=== PATIENT | female | born 1980 | race Caucasian/White ===

== ENCOUNTER 2018-06-10 18:28 | Emergency (ER) | payer BC ==
[~2018-06-10] VITALS: Ht 160 cm; Wt 75.3 kg
[~2018-06-10 18:28] MED LIST: PSYL48.56 OR
[2018-06-10 18:30] VITALS: BP 116/58
[2018-06-10] MEDS ORDERED: DEXAMETHASONE SOD PHOS 10MG/1ML VIAL INJ IM ONE (18:45)
[2018-06-10] MEDS ORDERED: cefTRIAXone SOD 1,000 MG VL IM ONE (18:45)
== END 2018-06-10 19:10 | disposition home or self-care (01) ==
LOC: ER 18:28
DX: J06.9 Acute upper respiratory infection, unspecified (principal)
CPT/HCPCS: 96372; 99284; J0696; J1100

== ENCOUNTER 2021-08-21 17:02 | Emergency (ER) | payer BC, OTHER ==
[~2021-08-21] VITALS: Ht 162.6 cm; Wt 77.1 kg
[2021-08-21 17:13] VITALS: BP 124/73
[2021-08-21] MEDS ORDERED: TETRACAINE HCL 0.5% OPTH(EYE) SOLN 4ML ONE (17:36)
[2021-08-21] MEDS ORDERED: FLUORESCEIN SOD OPTH TEST STRIP ONE (17:36)
[2021-08-21] MEDS ORDERED: ARTISOL13 EACHEYE (18:59)
[2021-08-21] MEDS ORDERED: BACIOIN49 OP (18:59)
[2021-08-21] MEDS ORDERED: POLYSOL15 OP (18:59)
[2021-08-21] MEDS ORDERED: PET35OO OP (18:59)
== END 2021-08-21 18:59 | disposition home or self-care (01) ==
LOC: ER 17:02
DX: S05.01XA Injury of conjunctiva and corneal abrasion without foreign body, right eye, initial encounter (principal); H11.433 Conjunctival hyperemia, bilateral; X58.XXXA Exposure to other specified factors, initial encounter; Y93.89 Activity, other specified; Y92.89 Other specified places as the place of occurrence of the external cause; Y99.8 Other external cause status

== ENCOUNTER → 2021-09-23 | Outpatient (CLI) | payer BC ==
[2021-09-23 13:15] LABS: Basophils # (auto) 0.1 10 ^3/uL (0-0.2); Basophils % (auto) 0.8 % (0.0-2.0); Eosinophils # (auto) 0.2 10 ^3/uL (0-0.8); Eosinophils % (auto) 1.7 % (0.0-7.0); Hematocrit 40.1 % (36.0-46.0); Hemoglobin 13.6 g/dL (12.2-16.2); Lymphocytes # (auto) 2.3 10 ^3/uL (0.4-5.4); Lymphocytes % (auto) 25.7 % (10.0-50.0); Mean Corpuscular Hemoglobin 28.4 pg (28.0-32.0); Mean Corpuscular Volume 83.6 fL (80.0-100.0); Monocytes # (auto) 0.7 10 ^3/uL (0-1.3); Monocytes % (auto) 7.6 % (0.0-12.0); Neutrophils # (auto) 5.9 10 ^3/uL (1.6-8.6); Neutrophils % (auto) 64.2 % (37.0-80.0); Red Blood Cells 4.79 10^6/uL (4.0-5.20); Red Cell Distribution Width 13.5 % (11.8-14.3); White Blood Cell 9.1 10^3/uL (4.4-10.8)
[2021-09-23 13:17] LABS: Free T4 (Free Thyroxine) 0.9 ng/dL (0.89-1.76)
[2021-09-23 13:19] LABS: Potassium 3.9 mmol/L (3.5-5.1)
[2021-09-23 13:25] LABS: Albumin 3.6 g/dL (3.4-5.0); BUN/Creatinine Ratio 13.5
[2021-09-23 13:27] LABS: Total Protein 7.4 g/dL (6.4-8.2)
== END | disposition home or self-care (01) ==
LOC: LAB 10:22
PROVIDERS: ATTEND Nurse Practitioner Family
DX: Z00.00 Encounter for general adult medical examination without abnormal findings (principal); F41.9 Anxiety disorder, unspecified; K59.09 Other constipation; R53.83 Other fatigue
CPT/HCPCS: 36415; 80053; 82306; 82607; 84439; 84443; 85025

== ENCOUNTER → 2023-02-02 | Outpatient (CLI) | payer BC | END | disposition home or self-care (01) | LOC: LAB 10:52 | PROVIDERS: ATTEND Nurse Practitioner Family | DX: Z02.0 Encounter for examination for admission to educational institution (principal) | CPT/HCPCS: 36415; 86706; 86735; 86762; 86765; 86787 ==

== ENCOUNTER 2023-03-23 12:50 | Emergency (ER) | payer BC ==
[~2023-03-23] VITALS: Ht 162.6 cm; Wt 80.0 kg
[2023-03-23] MEDS ORDERED: FAMOTIDINE (10MG/ML) 2ML VL IV ONE (13:15)
[2023-03-23] MEDS ORDERED: methylPREDNISolone SOD SUCC 40 MG/ML VL IV ONE (13:15)
[2023-03-23] MEDS ORDERED: diphenhdrAMINE HCL 50 MG/1 ML VL IV ONE (13:15)
[2023-03-23 13:40] LABS: Basophils # (auto) 0.1 10 ^3/uL (0-0.2); Basophils % (auto) 1.3 % (0.0-2.0); Eosinophils # (auto) 0.3 10 ^3/uL (0-0.8); Eosinophils % (auto) 2.5 % (0.0-7.0); Hematocrit 41.2 % (36.0-46.0); Hemoglobin 13.8 g/dL (12.2-16.2); Lymphocytes # (auto) 3.1 10 ^3/uL (0.4-5.4); Lymphocytes % (auto) 27.6 % (10.0-50.0); Mean Corpuscular Hemoglobin 27.5 pg (28.0-32.0); Mean Corpuscular Hgb Conc. 33.4 g/dL (32.0-36.0); Mean Corpuscular Volume 82.3 fL (80.0-100.0); Monocytes # (auto) 0.9 10 ^3/uL (0-1.3); Monocytes % (auto) 7.9 % (0.0-12.0); Neutrophils # (auto) 6.7 10 ^3/uL (1.6-8.6); Neutrophils % (auto) 60.7 % (37.0-80.0); Red Blood Cells 5.01 10^6/uL (4.0-5.20); Red Cell Distribution Width 13.6 % (11.8-14.3); White Blood Cell 11.1 10^3/uL (4.4-10.8)
[2023-03-23 14:18] LABS: Alanine Aminotransferase 15 U/L (7-40); Alkaline Phosphatase 113 U/L (46-116); Anion Gap 7.8 (5-15); Aspartate Aminotransferase 11 U/L (13-40); BUN/Creatinine Ratio 15.6 (10.0-20.0); Blood Urea Nitrogen 12 mg/dL (9-23); Calcium 9.2 mg/dL (8.5-10.1); Carbon Dioxide 22.2 mmol/L (20-30); Chloride 107 mmol/L (98-107); Glucose 94 mg/dL (74-106); Potassium 4.2 mmol/L (3.5-5.1); Sodium 137 mmol/L (136-145)
[2023-03-23 14:19] LABS: Albumin 4.2 g/dL (3.2-4.8); Bilirubin, Total 0.9 mg/dL (0.2-1.0); Total Protein 6.8 g/dL (5.7-8.2)
[2023-03-23] MEDS ORDERED: IOHEXOL 300 MG/ML 100ML BOTTLE IJ ONE (14:22)
[2023-03-23 14:27] LABS: CRP High Sensitivity 1.16 mg/dL (<1.0)
[2023-03-23] MEDS ORDERED: TETRACAINE HCL 0.5% OPTH(EYE) SOLN 4ML EACHEYE ONE (15:30)
[2023-03-23] MEDS ORDERED: FLUORESCEIN SOD OPTH TEST STRIP EACHEYE ONE (15:30)
[2023-03-23] MEDS ORDERED: FLUORESCEIN SOD OPTH TEST STRIP ONE (16:17)
[2023-03-23] MEDS ORDERED: AUG875T PO (16:49)
[2023-03-23] MEDS ORDERED: POLYSOL28 OP (16:49)
[2023-03-23] MEDS ORDERED: PRED20TA2 PO (16:49)
[2023-03-23 17:01] VITALS: BP 110/82; PULSE 99; RESP 16; TEMP 98.9; O2SAT 96
== END 2023-03-23 17:04 | disposition home or self-care (01) ==
LOC: ER 12:50
DX: H10.9 Unspecified conjunctivitis (principal); T78.40XA Allergy, unspecified, initial encounter; Z79.899 Other long term (current) drug therapy; Y93.H2 Activity, gardening and landscaping
CPT/HCPCS: 36415; 70481; 80053; 85025; 86141; 96374; 96375; 99285; J1200; J2920; J3490; Q9967

== ENCOUNTER 2025-01-19 07:53 | Outpatient (CLI) | payer BC ==
[~2025-01-19 07:53] MED LIST changes: +AUG875T PO; +POLYSOL28 OP; +PRED20TA2 PO
[2025-01-19 08:12] LABS: Urine Bacteria FEW /hpf (None Seen); Urine Blood 1+ /uL (Negative); Urine Mucus FEW (None Seen); Urine Protein, UAD 1+ (Negative); Urine Specific Gravity 1.022 (1.001-1.035); Urine Squamous Epithelial Cell MANY /hpf (<5); Urine Urobilinogen Normal (Negative); Urine WBC 455 /HPF (0-5); Urine WBC Clumps PRESENT /hpf (None Seen)
[2025-01-19 08:14] LABS: Basophils # (auto) 0.1 10 ^3/uL (0-0.2); Basophils % (auto) 0.7 % (0.0-2.0); Eosinophils # (auto) 0.2 10 ^3/uL (0-0.8); Eosinophils % (auto) 2.2 % (0.0-7.0); Hemoglobin 13.8 g/dL (12.2-16.2); Lymphocytes # (auto) 3.4 10 ^3/uL (0.4-5.4); Lymphocytes % (auto) 34.7 % (10.0-50.0); Mean Corpuscular Hemoglobin 27.2 pg (28.0-32.0); Mean Corpuscular Hgb Conc. 33.6 g/dL (32.0-36.0); Mean Corpuscular Volume 80.8 fL (80.0-100.0); Monocytes # (auto) 0.7 10 ^3/uL (0-1.3); Monocytes % (auto) 7.1 % (0.0-12.0); Neutrophils # (auto) 5.4 10 ^3/uL (1.6-8.6); Neutrophils % (auto) 55.3 % (37.0-80.0); Platelet Count (auto) 293 10^3/uL (140-450); Red Blood Cells 5.07 10^6/uL (4.0-5.20); Red Cell Distribution Width 13.8 % (11.8-14.3); White Blood Cell 9.9 10^3/uL (4.4-10.8)
[2025-01-19 08:16] LABS: Urine Clarity Cloudy (Clear); Urine Color Yellow (Yellow)
[2025-01-19 08:31] LABS: Alanine Aminotransferase 13 U/L (7-40); Albumin 4.4 g/dL (3.2-4.8); Alkaline Phosphatase 107 U/L (46-116); Anion Gap 10 (5-15); Aspartate Aminotransferase 20 U/L (<34); Bilirubin, Total 0.7 mg/dL (0.2-1.0); Blood Urea Nitrogen 13 mg/dL (9-23); Calcium 9.7 mg/dL (8.7-10.4); Carbon Dioxide 26 mmol/L (20-31); Chloride 105 mmol/L (98-107); Cholesterol 211 mg/dL (< 200); Glucose 93 mg/dL (74-106); HDL Cholesterol 47 mg/dL (40-59); LDL Cholesterol 154 mg/dL (< 100); Sodium 141 mmol/L (136-145); Total Protein 7.1 g/dL (5.7-8.2); Triglycerides 183 mg/dL (< 150)
== END 2025-01-19 17:00 | disposition home or self-care (01) ==
LOC: LAB 07:53
PROVIDERS: ATTEND Nurse Practitioner Family
DX: I10 Essential (primary) hypertension (principal); Z00.01 Encounter for general adult medical examination with abnormal findings; E66.9 Obesity, unspecified; A00-B99 Certain infectious and parasitic diseases
CPT/HCPCS: 36415; 80053; 80061; 81001; 82306; 82533; 82670; 84144; 84403; 84443; 85025

== ENCOUNTER 2025-04-17 11:32 | Inpatient (IN) | payer BC ==
[~2025-04-17] VITALS: Ht 160 cm; Wt 79.5 kg
--- NOTE | 2025-04-17 11:50 | ED.PDOC ---
General HPI Comments 44 year old female presents to the ED via EMS with a chief complaint of flank pain onset 1 day. Patient was transferred from [facility], was diagnosed with pyelonephritis and kidney stones. Patient began experiencing RT flank pain as well as nausea, vomiting, went to [facility] was given IV fluids, Zosyn, Rocephin, last dose of Dilaudid was 20 minutes before transfer. Currently rates her pain 4/10. Denies any PMHx as well as fever, chills, dysuria, hematuria, hematemesis, diarrhea, chest pain, dizziness. No other symptoms or modifying factors present at this time. Chief Complaint: Flank Pain Time Seen by MD: 11:40 Primary Care Provider: DEIES Reviewed notes: Medications, Allergies Allergies: Coded Allergies: NO KNOWN ALLERGIES (Unverified , 07/03/11) Home Meds Active Scripts Amoxicillin & Pot Clavulanate (AUGMENTIN TABLET) 875 Mg Tb, 875 MG PO BID for 7 Days, #14 TAB Prov:PATRICK DE LA TORRE DO 03/23/23 Polymyxin B-Trimethoprim (Trimethoprim Sulfate/Poly) Polymyxn Fariba, 1 DROP OP Q3HWA for 7 Days, #30 ML Prov:PATRICK DE LA TORRE DO 03/23/23 Prednisone (Prednisone) 20 Mg Tab, 40 MG PO DAILY for 5 Days, #10 TAB Prov:PATRICK DE LA TORRE DO 03/23/23 Reported Medications Psyllium (Metamucil) 48.57 % Pow, 48.57 % OR HS 07/03/11 Information Source: Patient, Emergency Med Personnel Mode of Arrival: EMS Severity: Moderate Timing: Days Duration: Since onset Prehospital treatment: None Onset: Spontaneous Symptoms: Other History of: None Location: (R) Flank Modifying factors: None associated signs and symptoms: Nausea, Vomiting, Flank Pain Past Medical History PAST MEDICAL HISTORY: Denies Surgical History: Denies all surgeries MANAGER OPERATIONS History: No Pertinent MANAGER OPERATIONS History Family History Family History: Reviewed,noncontributory to illness Social History Smoker: Non-Smoker Alcohol: Denies ETOH Use Drugs: Denies Drug Use Lives In: Home Constitutional: denies: chills, diaphoresis, fatigue, fever, malaise, sweats, weakness, others EENTM: denies: blurred vision, double vision, ear bleeding, ear discharge, ear drainage, ear pain, ear ringing, eye pain, eye redness, hearing loss, mouth pain, mouth swelling, nasal discharge, nose bleeding, nose congestion, nose pain, photophobia, tearing, throat pain, throat swelling, voice changes, others Respiratory: denies: cough, hemoptysis, orthopnea, SOB at rest, shortness of breath, SOB with excertion, stridor, wheezing, others Cardiovascular: denies: chest pain, dizzy spells, diaphoresis, Dyspnea on exertion, edema, irregular heart beat, left arm pain, lightheadedness, palpitations, PND, syncope, others Gastrointestinal: reports: nausea, vomiting; denies: abdomen distended, abdominal pain, blood streaked bowels, constipated, diarrhea, dysphagia, difficulty swallowing, hematemesis, melena, poor appetite, poor fluid intake, rectal bleeding, rectal pain, others Genitourinary: reports: flank pain; denies: abnormal vagina bleeding, burning, dyspareunia, dysuria, frequency, hematuria, incontinence, pain, , vagina discharge, urgency, others Neurological: denies: dizziness, fainting, headache, left sided numbness, left sided weakness, numbness, paresthesia, pre-existing deficit, right sided numbness, right sided weakness, seizure, speech problems, tingling, tremors, weakness, others Musculoskeletal: denies: back pain, gout, joint pain, joint swelling, muscle pain, muscle stiffness, neck pain, others Integumetry: denies: bruises, change in color, change in hair/nails, dryness, laceration, lesions, lumps, rash, wounds, others Allergic/Immunocompromised: denies: Difficulty Healing, Frequent Infections, Hives, Itching, others Hematologic/Lymphatic: denies: anemia, blood clots, easy bleeding, easy bruising, swollen glands, others Endocrine: denies: excessive hunger, excessive sweating, excessive thirst, excessive urination, flushing, intolerance to cold, intolerance to heat, unexplained weight gain, unexplained weight loss, others Psychiatric: denies: anxiety, bipolar disorder, depression, hopeless, panic disorder, schizophrenia, sleepless, suicidal, others All Other Systems: Reviewed and Negative Physical Exam General Appearance: Normal HEENT: Normal ENT Inspection, Pharynx Normal, TMs Normal Neck: Full Range of Motion, Non-Tender, Normal, Normal Inspection Respiratory: Chest Non-Tender, Lungs Clear, No Accessory Muscle Use, No Respiratory Distress, Normal Breath Sounds Cardiovascular: No Edema, No JVD, No Murmur, No Gallop, Normal Peripheral Pulses, Regular Rate/Rhythm Breast Exam: Deferred Gastrointestinal: No Organomegaly, Non Tender, No Pulsatile Mass, Normal Bowel Sounds, Soft Genitalia: Deferred Pelvic: Deferred Rectal: Deferred Extremities: No calf tenderness, Normal capillary refill, Normal inspection, Normal range of motion, Non-tender, No pedal edema Musculoskeletal : Apperance: Normal 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 Was a procedure done?: No Differential Diagnosis Kidney stone (Female): Renal failure, Urolithiasis Kidney stone (Male): N/A Penile/Scrotal: N/A Urinary Problem (Male): N/A Urinary Problem (Female): UTI X-Ray, Labs, Meds, VS Vital Signs Date Time Temp Pulse Resp B/P (MAP) Pulse Ox O2 Delivery O2 Flow Rate FiO2 04/17/25 13:42 74 16 116/74 04/17/25 12:10 72 13 97 Room Air* 0 21 04/17/25 12:10 72 13 131/70 (90) 97 04/17/25 11:32 98.2 101 18 138/80 97 98.2 Lab Test 04/17/25 12:15 Range/Units White Blood Count 13.9 H 4.4-10.8 10^3/uL Red Blood Count 4.34 4.0-5.20 10^6/uL Hemoglobin 11.7 L 12.2-16.2 g/dL Hematocrit 35.5 L 36.0-46.0 % Mean Corpuscular Volume 81.9 80.0-100.0 fL Mean Corpuscular Hemoglobin 26.9 L 28.0-32.0 pg Mean Corpuscular Hemoglobin Concent 32.9 32.0-36.0 g/dL Red Cell Distribution Width 14.2 11.8-14.3 % Platelet Count 267 140-450 10^3/uL Mean Platelet Volume 8.0 6.9-10.8 fL Neutrophils (%) (Auto) 77.4 37.0-80.0 % Lymphocytes (%) (Auto) 15.0 10.0-50.0 % Monocytes (%) (Auto) 6.2 0.0-12.0 % Eosinophils (%) (Auto) 0.3 0.0-7.0 % Basophils (%) (Auto) 1.1 0.0-2.0 % Neutrophils # (Auto) 10.8 H 1.6-8.6 10 ^3/uL Lymphocytes # (Auto) 2.1 0.4-5.4 10 ^3/uL Monocytes # (Auto) 0.9 0-1.3 10 ^3/uL Eosinophils # (Auto) 0 0-0.8 10 ^3/uL Basophils # (Auto) 0.1 0-0.2 10 ^3/uL Nucleated Red Blood Cells 0.0 % Sodium Level 140 136-145 mmol/L Potassium Level 4.1 3.5-5.1 mmol/L Chloride Level 108 H 98-107 mmol/L Carbon Dioxide Level 22 20-31 mmol/L Anion Gap 10 5-15 Blood Urea Nitrogen 7 L 9-23 mg/dL Creatinine 1.16 H 0.550-1.02 mg/dL Glomerular Filtration Rate Calc 59 >90 mL/min BUN/Creatinine Ratio 6.0 L 10.0-20.0 Serum Glucose 86 74-106 mg/dL Calcium Level 7.9 L 8.7-10.4 mg/dL Current Medications Medications (Trade) Dose Ordered Sig/Celeste Route Start Time Stop Time Status Last Admin Hydromorphone HCl (Dilaudid Injection) 0.5 mg ONCE ONCE IV 04/17/25 13:30 04/17/25 13:31 DC 04/17/25 13:42 Time of 1ST Reevaluation: 12:10 Reevaluation 1ST: Unchanged Patient Education/Counseling: Diagnosis, Treatment, Prognosis Family Education/Counseling: No Family Present SEPSIS Sepsis Screen Physician Orders * Urology Consult (04/17/25 11:41) Urinalysis (04/17/25 13:25) Vital Signs Date Time Temp Pulse Resp B/P (MAP) Pulse Ox O2 Delivery O2 Flow Rate FiO2 04/17/25 13:42 74 16 116/74 04/17/25 12:10 72 13 97 Room Air* 0 21 04/17/25 12:10 72 13 131/70 (90) 97 04/17/25 11:32 98.2 101 18 138/80 97 98.2 Laboratory Tests Test 04/17/25 12:15 White Blood Count 13.9 10^3/uL (4.4-10.8) H Medications Medications Dose Ordered Sig/Celeste Route Start Time Stop Time Status Last Admin Dose Admin Hydromorphone HCl 0.5 mg ONCE ONCE IV 04/17/25 13:30 04/17/25 13:31 DC 04/17/25 13:42 Departure 1 Departure Time of Disposition: 13:45 (Patient presented as a transfer from outside hospital for 4 mm ureteral stone associated with pyelonephritis. We will admit patient for further workup and expert consultation) Impression: Primary Impression: Pyelonephritis Additional Impression: Ureteral colic Disposition: ADMITTED INPATIENT Admit to: Med Surg Condition: Serious Critical Care Note Critical Care Time?: No Stability Stability form required: No I personally scribed for KAY CALVIN MD ([email or web address]) on 04/17/25 at 11:50. Electronically submitted by Mora Brewer ([email or web address]). KAY CALVIN MD Apr 17, 2025 11:50
[2025-04-17 12:10] VITALS: PULSE 72; RESP 13; O2SAT 97
[2025-04-17 12:35] LABS: Hematocrit 35.5 % (36.0-46.0); Hemoglobin 11.7 g/dL (12.2-16.2); Mean Corpuscular Hemoglobin 26.9 pg (28.0-32.0); Mean Corpuscular Volume 81.9 fL (80.0-100.0); Nucleated Red Blood Cells % 0.0 %
[2025-04-17 12:43] LABS: Potassium 4.1 mmol/L (3.5-5.1); Sodium 140 mmol/L (136-145)
[2025-04-17 12:44] LABS: Anion Gap 10 (5-15); Carbon Dioxide 22 mmol/L (20-31)
[2025-04-17 12:46] LABS: Calcium 7.9 mg/dL (8.7-10.4); Chloride 108 mmol/L (98-107)
[2025-04-17 12:49] LABS: BUN/Creatinine Ratio 6.0 (10.0-20.0); Glucose 86 mg/dL (74-106)
[2025-04-17 12:51] LABS: Blood Urea Nitrogen 7 mg/dL (9-23)
[2025-04-17] MEDS: HYDROmorphone HCL 2 MG/ML VL/or syr IV ONE (13:42)
[2025-04-17] MEDS ORDERED: ONDANSETRON HCL 4 MG/2 ML VIAL IV PRN (16:30)
[2025-04-17] MEDS ORDERED: METOCLOPRAMIDE HCL 5MG/ml INJ 2ml VIAL IV PRN ×2 (16:30→16:45)
[2025-04-17] MEDS ORDERED: HYDROmorphone HCL 2 MG/ML VL/or syr IV PRN (16:30)
[2025-04-17] MEDS ORDERED: HYDROcodone-ACET 5/325MG TAB PO PRN (16:30)
[2025-04-17] MEDS ORDERED: DOCUSATE SOD 100 MG CAP PO PRN (16:30)
--- NOTE | 2025-04-17 16:49 | DVHHP2 ---
History of Present Illness Reason for Visit: right flank pain History of Present Illness Brigitte Davies is a 44-year-old female with no significant past medical history, who came to the hospital due to right flank and right lower quadrant pain. 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 She tried pain management measures at home but was unsuccessful. She went to [facility] where she was diagnosed with kidney stone, and pyelonephritis, and went home. She states she was doing a little better Thursday during the day and into the evening, but that night her pain came back again. She tried managing at home, but the pain worsened with associated nausea and vomiting. Once back in the ER she was diagnosed with moderate to severe right hydronephrosis, and acute kidney injury with her creating going up to 1.3. Past Surgical History: Other (Breast augmentation) Smoke: No ALCOHOL: occassional Drugs: None Lives: with Family Domestic Violence: Neg Review of Systems Constitutional: No: Fever, Chills, Sweats, Weakness, Malaise, Other Eyes: No: Pain, Vision change, Conjunctivae inflammation, Eyelid inflammation, Other, Redness ENT: No: Ear pain, Ear discharge, Nose pain, Nose discharge, Nose congestion, Mouth pain, Mouth swelling, Throat pain, Throat swelling, Other Respiratory: No: Cough, Dry, Shortness of breath, SOB with excertion, Wheezing, Hemoptysis, Pleuritic Pain, Sputum, Wheezing, Other Cardiovascular: No: Chest Pain, Palpitations, Orthopnea, Paroxysmal Noc. Dyspnea, Edema, Lt Headedness, Other Gastrointestinal: Nausea, Abdominal Pain (RLQ/Pelvic pain); No: Vomiting, Diarrhea, Constipation, Melena, Hematochezia, Other Genitourinary: No Dysuria, No Frequency, No Incontinence, No Hematuria, No Retention, No Other Musculoskeletal: back pain (right flank pain); No: other, neck pain, shoulder pain, arm pain, hand pain, leg pain, foot pain Skin: No: Rash, Lesions, Jaundice, Bruising, Other Neurological: No: Weakness, Numbness, Incoordination, Change in speech, Confusion, Seizures, Other Allergies: Coded Allergies: NO KNOWN ALLERGIES (Unverified , 07/03/11) Exam Vital Signs Vital Signs Date Time Temp Pulse Resp B/P (MAP) Pulse Ox O2 Delivery O2 Flow Rate FiO2 04/17/25 16:00 75 13 140/89 (106) 97 04/17/25 12:10 Room Air* 0 21 04/17/25 11:32 98.2 98.2 General Appearance: Alert, Oriented X3, Cooperative, moderate distress HEENT: Atraumatic, PERRLA Respiratory: Clear to auscultation, Normal air movement Cardiovascular: Regular rate, Normal S1, Normal S2, No murmurs Abdominal: Normal bowel sounds, Soft, Other (RLQ/Pelvic tenderness) Extremities: No clubbing, No cyanosis, No edema, Normal pulses, No tenderness/swelling Skin: No rashes, No breakdown, No significant lesion Neuro: Normal gait, Normal speech, Strength at 5/5 X4 ext Psych/Mental Status: Mental status NL, Mood NL Labs/Xrays Labs Test 04/17/25 12:15 Range/Units White Blood Count 13.9 H 4.4-10.8 10^3/uL Red Blood Count 4.34 4.0-5.20 10^6/uL Hemoglobin 11.7 L 12.2-16.2 g/dL Hematocrit 35.5 L 36.0-46.0 % Mean Corpuscular Volume 81.9 80.0-100.0 fL Mean Corpuscular Hemoglobin 26.9 L 28.0-32.0 pg Mean Corpuscular Hemoglobin Concent 32.9 32.0-36.0 g/dL Red Cell Distribution Width 14.2 11.8-14.3 % Platelet Count 267 140-450 10^3/uL Mean Platelet Volume 8.0 6.9-10.8 fL Neutrophils (%) (Auto) 77.4 37.0-80.0 % Lymphocytes (%) (Auto) 15.0 10.0-50.0 % Monocytes (%) (Auto) 6.2 0.0-12.0 % Eosinophils (%) (Auto) 0.3 0.0-7.0 % Basophils (%) (Auto) 1.1 0.0-2.0 % Neutrophils # (Auto) 10.8 H 1.6-8.6 10 ^3/uL Lymphocytes # (Auto) 2.1 0.4-5.4 10 ^3/uL Monocytes # (Auto) 0.9 0-1.3 10 ^3/uL Eosinophils # (Auto) 0 0-0.8 10 ^3/uL Basophils # (Auto) 0.1 0-0.2 10 ^3/uL Nucleated Red Blood Cells 0.0 % Sodium Level 140 136-145 mmol/L Potassium Level 4.1 3.5-5.1 mmol/L Chloride Level 108 H 98-107 mmol/L Carbon Dioxide Level 22 20-31 mmol/L Anion Gap 10 5-15 Blood Urea Nitrogen 7 L 9-23 mg/dL Creatinine 1.16 H 0.550-1.02 mg/dL Glomerular Filtration Rate Calc 59 >90 mL/min BUN/Creatinine Ratio 6.0 L 10.0-20.0 Serum Glucose 86 74-106 mg/dL Calcium Level 7.9 L 8.7-10.4 mg/dL SEPSIS Sepsis Screen Date sepsis recognized/suspect: Apr 17, 2025 Time Sepsis recognized/suspect: 1136 Recent Procedure: No On Antibiotic Therapy: Yes Respiratory Rate >20: No Heart Rate >90: Yes Temp<36 C (96.8 F) or >38.3 C: No SBP <90 or MAP <65 mmHG: No New Acute Mental Status Change: No Is the patient on CPAP, BIPAP,: No Physician Orders * Urology Consult (04/17/25 11:41) Urinalysis (04/17/25 13:25) Admit (04/17/25 16:30) Code Status (04/17/25 16:30) Hydrocodone-Acet 5/325mg Tab ([place] 5/32 (04/17/25 16:30) Ondansetron Hcl (Zofran) (04/17/25 16:30) Docusate Sodium Capsule (Colace Capsule) (04/17/25 16:30) Complete Blood Count (04/18/25 04:00) Comprehensive Metabolic Panel (04/18/25 04:00) Condition: Serious (04/17/25 16:30) Acetaminophen Tablet (Tylenol Tablet) (04/17/25 16:30) Metoclopramide Injection (Reglan Injecti (04/17/25 16:30) NS (04/17/25 16:30) Hydromorphone Injection (Dilaudid Inject (04/17/25 16:30) Ceftriaxone Ivpb Rocephin (04/18/25 09:00) Ceftriaxone Ivpb Rocephin (04/17/25 16:30) Tamsulosin Hydrochloride (Flomax) (04/17/25 18:00) Strain All Urine For Stones (04/17/25 16:30) Vital Signs Date Time Temp Pulse Resp B/P (MAP) Pulse Ox O2 Delivery O2 Flow Rate FiO2 04/17/25 16:00 75 13 140/89 (106) 97 04/17/25 14:13 85 16 133/81 04/17/25 14:05 73 13 133/81 (98) 97 04/17/25 13:42 74 16 116/74 04/17/25 12:10 72 13 97 Room Air* 0 21 04/17/25 12:10 72 13 131/70 (90) 97 04/17/25 11:32 98.2 101 18 138/80 97 98.2 Laboratory Tests Test 04/17/25 12:15 White Blood Count 13.9 10^3/uL (4.4-10.8) H Medications Medications Dose Ordered Sig/Celeste Route Start Time Stop Time Status Last Admin Dose Admin Hydromorphone HCl 0.5 mg ONCE ONCE IV 04/17/25 13:30 04/17/25 13:31 DC 04/17/25 13:42 0.5 MG Assessment/Plan Assessment/Plan Assessment: Hydronephrosis, Pyelonephritis, Renal calculi, UTI, Plan: Admit to Med-Surg, IV antibiotics, IV hydration, Pain management, Antiemetics, Strain all urine, Plan discussed with: Patient My Orders Orders - SURYA STODDARD Procedure Category Date Status Time Admit ADMIT 04/17/25 Verified 16:30 Code Status CODE 04/17/25 Verified 16:30 Hydrocodone-Acet PHA 04/17/25 Verified 5/325mg Tab ([place] 16:30 Ondansetron Hcl PHA 04/17/25 Verified (Zofran) 16:30 Docusate Sodium PHA 04/17/25 Verified Capsule (Colace 16:30 Complete Blood Count LAB 04/18/25 Verified 04:00 Comprehensive LAB 04/18/25 Verified Metabolic Panel 04:00 Condition: Serious KATHY 04/17/25 Verified 16:30 Acetaminophen Tablet PHA 04/17/25 Verified (Tylenol Tablet) 16:30 Metoclopramide PHA 04/17/25 Verified Injection (Reglan 16:30 NS PHA 04/17/25 Verified 16:30 Hydromorphone PHA 04/17/25 Verified Injection (Dilaudid 16:30 Ceftriaxone Ivpb PHA 04/18/25 Verified Rocephin 09:00 Ceftriaxone Ivpb PHA 04/17/25 Verified Rocephin 16:30 Tamsulosin PHA 04/17/25 Verified Hydrochloride (Flomax) 18:00 Strain All Urine For KATHY 04/17/25 Verified Stones 16:30 Date of Service: Apr 17, 2025 Billing Provider: SURYA STODDARD Common Visit Codes: [id number] INP/OBS CARE (MOD) SURYA STODDARD Apr 17, 2025 16:49
[2025-04-17] MEDS: SODIUM CHLORIDE 0.9% 1,000 ML IV SCH (17:06)
--- NOTE | 2025-04-17 17:52 | DVHINCON2 ---
Date of service: Apr 17, 2025 Referring Physician Hospitalist Reason for Consultation ureteral stone History of Present Illness History Source: Patient, RN Notes, MD Notes, Old Records Exam Limitations: No limitations HPI 44 year old female presents to the ED via EMS with a chief complaint of flank pain onset 1 day. Patient was transferred from [facility], was diagnosed with pyelonephritis and kidney stones. Patient began experiencing RT flank pain as well as nausea, vomiting. CT A/P showed a 4 mm distal stone in the right ureter with resultant moderate to severe hydro in the setting of pyelonephritis. Home Meds Reported Medications Tamsulosin Hcl (Tamsulosin Hcl) 0.4 Mg Cap, CAP PO 04/18/25 Levofloxacin Hemihydrate (LEVOFLOXACIN) 750 Mg Tab, 1 TAB PO DAILY 04/18/25 Review of Systems Constitutional: Chills, Malaise Gastrointestinal: Nausea, Vomiting Genitourinary: Pain H&P Exam Vital Signs Vital Signs Date Time Temp Pulse Resp B/P (MAP) Pulse Ox O2 Delivery O2 Flow Rate FiO2 04/17/25 16:00 75 13 140/89 (106) 97 04/17/25 12:10 Room Air* 0 21 04/17/25 11:32 98.2 98.2 General Appeara: Well developed, Well nourished, Normal Appearance Neuro/Mental St: Alert, Oriented Appearance: Appropriate appearance, Appropriate insight Eye contact/ Speech: Cooperative, Good eye contact, Normal speech Skin Exam: Normal inspection, Normal color, Warm/dry Labs/Xrays [place] [address] Ph: [phone] DIAGNOSTIC IMAGING Diagnostic Imaging Report : [id number] Signed PATIENT: VIKAS LAYNE LACCT: [id number] UNIT: [id number] : 1980 LOC: [facility] ROOM / BED: 0237 / A AGE / SEX: 44 / F ADM STATUS: ADM IN SERVICE 0600 ORDERING PHYSICIAN: DWIGHT MONTANA NP PROCEDURE(s): KIDUS - KIDNEY REASON: hydronephrosis ORDER NUMBER(s): [id number], ACCESSION NUMBER(s): [id number] INDICATION: hydronephrosis TECHNIQUE: Multiple real-time sonographic images of the kidneys and bladder were obtained. COMPARISON: None FINDINGS: The right kidney measures 11 cm in length, which is normal in size. There is normal echogenicity of the right kidney. Mild hydronephrosis. The left kidney measures 11 cm in length, which is normal in size. There is normal echogenicity of the left kidney. No hydronephrosis. No large intraluminal masses are seen in the bladder. Prior to voiding the bladder volume measures volume 440 cc. Following voiding, the bladder volume residual measures 11 cc. IMPRESSION: Mild right hydronephrosis. ATED BY: MACK WATSON MD DICTATED DATE/TIME: 04/18/25922 SIGNED BY: MACK WATSON MD SIGNED DATE/TIME: 04/18/25922 CC: Labs Test 04/17/25 12:15 Range/Units White Blood Count 13.9 H 4.4-10.8 10^3/uL Red Blood Count 4.34 4.0-5.20 10^6/uL Hemoglobin 11.7 L 12.2-16.2 g/dL Hematocrit 35.5 L 36.0-46.0 % Mean Corpuscular Volume 81.9 80.0-100.0 fL Mean Corpuscular Hemoglobin 26.9 L 28.0-32.0 pg Mean Corpuscular Hemoglobin Concent 32.9 32.0-36.0 g/dL Red Cell Distribution Width 14.2 11.8-14.3 % Platelet Count 267 140-450 10^3/uL Mean Platelet Volume 8.0 6.9-10.8 fL Neutrophils (%) (Auto) 77.4 37.0-80.0 % Lymphocytes (%) (Auto) 15.0 10.0-50.0 % Monocytes (%) (Auto) 6.2 0.0-12.0 % Eosinophils (%) (Auto) 0.3 0.0-7.0 % Basophils (%) (Auto) 1.1 0.0-2.0 % Neutrophils # (Auto) 10.8 H 1.6-8.6 10 ^3/uL Lymphocytes # (Auto) 2.1 0.4-5.4 10 ^3/uL Monocytes # (Auto) 0.9 0-1.3 10 ^3/uL Eosinophils # (Auto) 0 0-0.8 10 ^3/uL Basophils # (Auto) 0.1 0-0.2 10 ^3/uL Nucleated Red Blood Cells 0.0 % Sodium Level 140 136-145 mmol/L Potassium Level 4.1 3.5-5.1 mmol/L Chloride Level 108 H 98-107 mmol/L Carbon Dioxide Level 22 20-31 mmol/L Anion Gap 10 5-15 Blood Urea Nitrogen 7 L 9-23 mg/dL Creatinine 1.16 H 0.550-1.02 mg/dL Glomerular Filtration Rate Calc 59 >90 mL/min BUN/Creatinine Ratio 6.0 L 10.0-20.0 Serum Glucose 86 74-106 mg/dL Calcium Level 7.9 L 8.7-10.4 mg/dL Assessment/Plan Problem List: (1) Hydronephrosis with ureteral calculus (2) Pyelonephritis Plan expulsive measures pain meds renal US tomorrow if pain free ok to D/C outpt f/u Plan discussed with: Patient, Other DWIGHT MONTANA NP Apr 17, 2025 17:52
[2025-04-17 18:04] VITALS: BP 140/85; PULSE 88; RESP 17; TEMP 98.5; O2SAT 97
[2025-04-17] MEDS: TAMSULOSIN HYDROCHLORIDE 0.4 MG CAP PO SCH (18:12)
[2025-04-17 20:00] VITALS: PULSE 73; RESP 18; O2SAT 99
[2025-04-17 21:00] VITALS: BP 132/77; PULSE 73; RESP 18; TEMP 99.6; O2SAT 99
[2025-04-17 21:27] LABS: Urine Protein, UAD Negative (Negative)
[2025-04-18 01:00] VITALS: BP 118/85; PULSE 96; RESP 18; TEMP 99.1; O2SAT 97
[2025-04-18 05:00] VITALS: BP 122/73; PULSE 83; RESP 17; TEMP 99; O2SAT 95
[2025-04-18 05:59] LABS: Hematocrit 34.3 % (36.0-46.0); Hemoglobin 11.7 g/dL (12.2-16.2); Mean Corpuscular Hemoglobin 27.9 pg (28.0-32.0); Mean Corpuscular Volume 81.5 fL (80.0-100.0); Nucleated Red Blood Cells % 0.1 %
[2025-04-18 06:19] LABS: Alanine Aminotransferase 10 U/L (7-40); Albumin 3.5 g/dL (3.2-4.8); Alkaline Phosphatase 82 U/L (46-116); Anion Gap 12 (5-15); BUN/Creatinine Ratio 9.3 (10.0-20.0); Bilirubin, Total 0.9 mg/dL (0.2-1.0); Blood Urea Nitrogen 7 mg/dL (9-23); Calcium 8.2 mg/dL (8.7-10.4); Carbon Dioxide 21 mmol/L (20-31); Chloride 107 mmol/L (98-107); Glucose 70 mg/dL (74-106); Potassium 3.8 mmol/L (3.5-5.1); Sodium 140 mmol/L (136-145); Total Protein 5.8 g/dL (5.7-8.2)
[2025-04-18] MEDS ORDERED: TAMS0.4C39 PO ×2 (08:58→14:11)
[2025-04-18] MEDS ORDERED: LEVO750T40 PO (08:58)
[2025-04-18 09:00] VITALS: BP 129/80; PULSE 91; RESP 18; TEMP 98.5; O2SAT 96
--- NOTE | 2025-04-18 09:26 | DVH ---
INDICATION: hydronephrosis TECHNIQUE: Multiple real-time sonographic images of the kidneys and bladder were obtained. COMPARISON: None FINDINGS: The right kidney measures 11 cm in length, which is normal in size. There is normal echogen icity of the right kidney. Mild hydronephrosis. The left kidney measures 11 cm in length, which is normal in size. There is normal echogenicity of th e left kidney. No hydronephrosis. No large intraluminal masses are seen in the bladder. Prior to voiding the bladder volume measures vo lume 440 cc. Following voiding, the bladder volume residual measures 11 cc. IMPRESSION: Mild right hydronephrosis.
[2025-04-18 12:40] VITALS: BP 134/82; PULSE 95; RESP 17; TEMP 98.7; O2SAT 99
[2025-04-18] MEDS ORDERED: SODIUM CHLORIDE 0.9% 1,000 ML IV SCH (12:45)
[2025-04-18] MEDS: ACETAMINOPHEN 325 MG TAB PO PRN (13:31)
[2025-04-18] MEDS ORDERED: HYDR-4902 PO (14:11)
--- NOTE | 2025-04-18 16:49 | DVHDS2 ---
Discharge Summary Date of Admission Apr 17, 2025 at 16:30 Date of Discharge: Apr 18, 2025 Labs/Diagnostic Data: Laboratory Results Test 04/18/25 05:12 04/17/25 13:25 White Blood Count 10.9 10^3/uL (4.4-10.8) Red Blood Count 4.21 10^6/uL (4.0-5.20) Hemoglobin 11.7 g/dL (12.2-16.2) Hematocrit 34.3 % (36.0-46.0) Mean Corpuscular Volume 81.5 fL (80.0-100.0) Mean Corpuscular Hemoglobin 27.9 pg (28.0-32.0) Mean Corpuscular Hemoglobin Concent 34.2 g/dL (32.0-36.0) Red Cell Distribution Width 13.8 % (11.8-14.3) Platelet Count 251 10^3/uL (140-450) Mean Platelet Volume 8.3 fL (6.9-10.8) Neutrophils (%) (Auto) 62.9 % (37.0-80.0) Lymphocytes (%) (Auto) 25.9 % (10.0-50.0) Monocytes (%) (Auto) 8.5 % (0.0-12.0) Eosinophils (%) (Auto) 1.9 % (0.0-7.0) Basophils (%) (Auto) 0.8 % (0.0-2.0) Neutrophils # (Auto) 6.9 10 ^3/uL (1.6-8.6) Lymphocytes # (Auto) 2.8 10 ^3/uL (0.4-5.4) Monocytes # (Auto) 0.9 10 ^3/uL (0-1.3) Eosinophils # (Auto) 0.2 10 ^3/uL (0-0.8) Basophils # (Auto) 0.1 10 ^3/uL (0-0.2) Nucleated Red Blood Cells 0.1 % Sodium Level 140 mmol/L (136-145) Potassium Level 3.8 mmol/L (3.5-5.1) Chloride Level 107 mmol/L (98-107) Carbon Dioxide Level 21 mmol/L (20-31) Anion Gap 12 (5-15) Blood Urea Nitrogen 7 mg/dL (9-23) Creatinine 0.75 mg/dL (0.550-1.02) Glomerular Filtration Rate Calc 99 mL/min (>90) BUN/Creatinine Ratio 9.3 (10.0-20.0) Serum Glucose 70 mg/dL (74-106) Calcium Level 8.2 mg/dL (8.7-10.4) Total Bilirubin 0.9 mg/dL (0.2-1.0) Aspartate Amino Transferase (AST) 15 U/L (13-40) Alanine Aminotransferase (ALT) 10 U/L (7-40) Alkaline Phosphatase 82 U/L (46-116) Total Protein 5.8 g/dL (5.7-8.2) Albumin 3.5 g/dL (3.2-4.8) Urine Color Colorless (Yellow) Urine Clarity Clear (Clear) Urine pH 5.5 (5.0-9.0) Urine Specific [place] 1.009 (1.001-1.035) Urine Protein Negative (Negative) Urine Ketones 2+ (Negative) Urine Blood 3+ /uL (Negative) Urine Nitrite Negative (Negative) Urine Bilirubin Negative (Negative) Urine Urobilinogen Normal mg/dL (Negative) Urine Leukocyte Esterase Trace /uL (Negative) Urine RBC 4 /hpf (0 - 4) Urine Microscopic WBC 7 /HPF (0-5) Urine Squamous Epithelial Cells Few /hpf (<5) Urine Bacteria None seen /hpf (None Seen) Urine Glucose Normal mg/dL (Normal) Other Laboratory Tests 04/18/25 05:12 Brief Hx & Hospital Course: 44-year-old female with no significant past medical history, who came to the hospital due to right flank and right lower quadrant pain. 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 She tried pain management measures at home but was unsuccessful. She went to [facility] where she was diagnosed with kidney stone, and pyelonephritis, and went home. She states she was doing a little better Thursday during the day and into the evening, but that night her pain came back again. She tried managing at home, but the pain worsened with associated nausea and vomiting. Once back in the ER she was diagnosed with moderate to severe right hydronephrosis, and acute kidney injury with her creating going up to 1.3. 04/18: Patient no further CV tenderness, no fevers, had low-grade fever overnight 99.6 F,. Patient is tolerating p.o., feeling improved, wants to go home. Patient vital signs stable, stable for discharge as per plan below. Diagnosis: right nephrolithiasis with hydronephrosis pyelonephritis, possible, unable to ruleout Sepsis due to above Tachycardia JUSTIN due to VMN Leukocytosis, resolving, Ketosis Hematuria, microscopic Neutrophilia Anemia, normocytic BMI 31.0 Plan: -flomax 0.4mg daily until passed stone -finish home abx (levaquin) -hydrate aggressively -pain (1st line tylenol, 2nd line ibuprofen, 3rd line Rx norco 5 prn upto tid) Condition at Discharge: Fair Final Diagnosis/Problems List right nephrolithiasis with hydronephrosis pyelonephritis, possible, unable to ruleout Sepsis due to above Tachycardia JUSTIN due to VMN Leukocytosis, resolving, Ketosis Hematuria, microscopic Neutrophilia Anemia, normocytic BMI 31.0 Discharge Disposition: Home Discharge Instruct/Medications Diet: Regular Activity: No Restrictions, As Tolerated Follow Up/Referral: below Medications: below Scheduled Levofloxacin Hemihydrate (Levofloxacin), 1 TAB PO DAILY, (Reported) Tamsulosin Hcl (Tamsulosin Hcl), 1 CAP PO DAILY Scheduled PRN Hydrocodone-Acetaminophen (Hydrocodone Bitartrate/AC 5-325 mg), 1 TAB PO TIDP PRN Discharge Statement: "Patient was advised to return to the ER or call 911 if any headaches, dizziness, shortness of breath, chest pain, abdominal pain, bleeding, fevers, or worsening of medical condition. Patient was counseled about treatment plan, medications, possible side effects, patientverbalized understanding. All questions were answered to the best of my ability. This discharge took greater then 30 minutes in planning, reviewing documentation, counseling the patient, and discussing with other team members." Date of Service: Apr 18, 2025 Billing Provider: KATERIN VILLEGAS MD Common Visit Codes: 09128-NUU/OBS DISCH DAY >30min KATERIN VILLEGAS MD Apr 18, 2025 16:49
== END 2025-04-18 15:55 | disposition home or self-care (01) | DRG 871 ==
LOC: ER 11:32 → EDBD 11:32 → OVERFLOW 16:30 → EAST 17:47
PROVIDERS: ADMIT Student in an Organized Health Care Education/Training Program; ATTEND Student in an Organized Health Care Education/Training Program
DX: A41.9 Sepsis, unspecified organism (principal); N17.0 Acute kidney failure with tubular necrosis; N13.6 Pyonephrosis; N20.0 Calculus of kidney; D64.9 Anemia, unspecified; E88.89 Other specified metabolic disorders; Z79.2 Long term (current) use of antibiotics; Z79.899 Other long term (current) drug therapy
CPT/HCPCS: 36415; 76775; 80048; 80053; 81001; 85025; 96374; G0378

== ENCOUNTER 2025-06-16 09:52 | Outpatient (CLI) | payer BC ==
[~2025-06-16 09:52] MED LIST changes: -AUG875T PO; +HYDR-4902 PO; +LEVO750T40 PO; -POLYSOL28 OP; -PRED20TA2 PO; -PSYL48.56 OR; +TAMS0.4C39 PO
[2025-06-16 10:57] LABS: Hematocrit 40.3 % (36.0-46.0); Hemoglobin 13.5 g/dL (12.2-16.2); Mean Corpuscular Hemoglobin 27.3 pg (28.0-32.0); Mean Corpuscular Volume 81.6 fL (80.0-100.0); Nucleated Red Blood Cells % 0.1 %
[2025-06-16 12:06] LABS: Alanine Aminotransferase 10 U/L (7-40); Albumin 4.4 g/dL (3.2-4.8); Alkaline Phosphatase 100 U/L (46-116); Anion Gap 8 (5-15); BUN/Creatinine Ratio 16.9 (10.0-20.0); Blood Urea Nitrogen 15 mg/dL (9-23); Calcium 9.4 mg/dL (8.7-10.4); Carbon Dioxide 27 mmol/L (20-31); Chloride 106 mmol/L (98-107); Glucose 86 mg/dL (74-106); Potassium 4.6 mmol/L (3.5-5.1); Sodium 141 mmol/L (136-145); Total Protein 7.4 g/dL (5.7-8.2); Triglycerides 90 mg/dL (< 150)
[2025-06-16 12:07] LABS: Bilirubin, Total 0.9 mg/dL (0.2-1.0); HDL Cholesterol 52 mg/dL (40-59)
[2025-06-16 12:09] LABS: Cholesterol 205 mg/dL (< 200)
== END 2025-06-16 17:00 | disposition home or self-care (01) ==
LOC: LAB 09:52
PROVIDERS: ATTEND Nurse Practitioner Family
DX: I10 Essential (primary) hypertension (principal); E55.9 Vitamin D deficiency, unspecified; Z00.01 Encounter for general adult medical examination with abnormal findings
CPT/HCPCS: 36415; 80053; 80061; 82306; 84443; 85025

== ENCOUNTER → 2025-06-29 | Outpatient (CLI) | payer BC ==
[2025-06-29 12:30] LABS: Free T4 (Free Thyroxine) 0.97 ng/dL (0.89-1.76)
== END | disposition home or self-care (01) ==
LOC: LAB 08:24
PROVIDERS: ATTEND Nurse Practitioner Family
DX: E05.80 Other thyrotoxicosis without thyrotoxic crisis or storm (principal)
CPT/HCPCS: 36415; 84439; 84443; 84480